=== PATIENT | male | born 1990 | race Caucasian/White ===

== ENCOUNTER 2016-11-30 10:18 | Emergency (ER) | payer OTHER ==
[2016-11-30] MEDS ORDERED: Ibuprofen 600 MG Tab PO ONE (10:52)
--- NOTE | 2016-11-30 10:58 | EDM.PDOC ---
[id number] Complaint: RT ARM FX Time Seen by Provider: 11/30/16 10:21 Source of Information: Reports: Patient, Other (coworker) History Limitations: Reports: No Limitations - History of Present Illness INITIAL COMMENTS - FREE TEXT/NARRATIVE: 26 y.o.w.m. came to the ed with his coworker after he injured his r forearm with a slash hammer. Now, swelling, deformity, pain, unable to use his r arm at work. No other acute medical issues at this time. Onset: Today Onset Date: 11/30/16 Onset Time: 10:00 Duration: Minutes: Location: Reports: Upper Extremity, Right Quality: Reports: Ache, Burning, Dull, Pressure Severity: Moderate Improves with: Reports: Cold Therapy, Immobilization Worsens with: Reports: Movement Context: Reports: Trauma Associated Symptoms: Reports: No Other Symptoms R wrist Pain Score (Numeric/FACES): 4 - Related Data Allergies Allergy/AdvReac Type Severity Reaction Status Date / Time No Known Allergies Allergy Verified 11/30/16 10:35 Home Meds: Home Meds Ibuprofen [Motrin] 600 mg PO TID PRN #30 tab 11/30/16 [Rx] Past Medical History Respiratory History: Reports: Pneumonia, Recurrent Other Musculoskeletal History: R wrist fx. Neurological History: Reports: Concussion Endocrine/Metabolic History: Reports: Obesity/BMI 30+ - Infectious Disease History Infectious Disease History: Reports: Chicken Pox - Past Surgical History HEENT Surgical History: Reports: Oral Surgery Social & Family History - Family History Family Medical History: Noncontributory - Tobacco Use Smoking Status *Q: Current Some Day Smoker Years of Tobacco use: 2 Packs/Tins Daily: 0.1 - Caffeine Use Caffeine Use: Reports: Coffee, Soda, Tea - Recreational Drug Use Recreational Drug Use: No Review of Systems - Review of Systems Review Of Systems: See Below Constitutional: Reports: No Symptoms Eyes: Reports: No Symptoms Ears: Reports: No Symptoms Nose: Reports: No Symptoms Mouth/Throat: Reports: No Symptoms Respiratory: Reports: No Symptoms Cardiovascular: Reports: No Symptoms GI/Abdominal: Reports: No Symptoms Genitourinary: Reports: No Symptoms Musculoskeletal: Reports: Joint Swelling (r wrist/forearm) Skin: Reports: No Symptoms Neurological: Reports: No Symptoms Psychiatric: Reports: No Symptoms ED EXAM, GENERAL - Physical Exam Exam: See Below Exam Limited By: No Limitations General Appearance: Alert, WD/WN, Mild Distress Eye Exam: Bilateral Eye: Normal Inspection Ears: Normal External Exam Ear Exam: Bilateral Ear: Auricle Normal Nose: Normal Inspection, Normal Mucosa Throat/Mouth: Normal Inspection, Normal Lips Head: Atraumatic, Normocephalic Neck: Normal Inspection, Supple, Non-Tender, Full Range of Motion Respiratory/Chest: No Respiratory Distress, Lungs Clear, Normal Breath Sounds, No Accessory Muscle Use, Chest Non-Tender Cardiovascular: Normal Peripheral Pulses, Regular Rate, Rhythm, No Edema, No Gallop Peripheral Pulses: 2+: Femoral (L), Femoral (R) GI/Abdominal: Normal Bowel Sounds, Soft, Non-Tender, No Organomegaly, No Distention, No Abnormal Bruit, No Mass (Male) Exam: No Hernia, Deferred Rectal (Males) Exam: Deferred Back Exam: Normal Inspection, Full Range of Motion Extremities: Joint Swelling, Arm Pain (r upper extremity) Neurological: Alert, Oriented, CN II-XII Intact, Normal Cognition, Normal Gait Psychiatric: Normal Affect, Normal Mood Skin Exam: Warm, Dry, Intact, Normal Color, No Rash Lymphatic: No Adenopathy ED TRAUMA EXTREMITY PROCEDURES - Splinting Right Upper Extremity Pre-Procedure NV Status: Normal Post-Procedure NV Status: Normal Splint Material: Plaster Splint Design: Volar (r forearm/wrist) Applied & Form Fitted By: Provider Provider Post-Splint Application NV Check: NV Status Normal, Good Position Complications: No Course - Vital Signs Text/Narrative:: 26 y.o.w.m. came to the ed with his coworker after he injured his r forearm with a slash hammer. Now, swelling, deformity, pain, unable to use his r arm at work. No other acute medical issues at this time. PE: Swelling/tenderness r forearm and wrist, dorasl aspect, neg snuff box sign Imaging: R forearm/wrist NAD, official report is pending. Impression: R forearm and wrist sprain Tx: Ice, Motrin, volar splint application, armsling Reexam: Improved Plan: D/C with instructions Last Recorded V/S: Last Vital Signs Temp 36.4 C 11/30/16 10:21 Pulse 88 11/30/16 11:30 Resp 18 11/30/16 11:30 BP 131/97 H 11/30/16 11:30 Pulse Ox 99 11/30/16 11:30 - Orders/Labs/Meds Orders: Active Orders 24 hr Category Date Time Status Forearm 2V Rt [CR] Stat Exams 11/30/16 10:52 Taken Ice Therapy [OM.PC] Routine Oth 11/30/16 10:52 Ordered Meds: Medications Discontinued Medications Generic Name Dose Route Start Last Admin Trade Name Freq PRN Reason Stop Dose Admin Ibuprofen 600 mg 11/30/16 10:52 11/30/16 11:07 Motrin PO 11/30/16 10:53 600 mg ONETIME ONE Administration Departure - Departure Time of Disposition: 11:30 Disposition: Home, Self-Care 01 Condition: Good Clinical Impression: Sprain of forearm, right Qualifiers: Encounter type: initial encounter Qualified Code(s): S63.501A - Unspecified sprain of right wrist, initial encounter Sprain of wrist, right Qualifiers: Encounter type: initial encounter Qualified Code(s): S63.501A - Unspecified sprain of right wrist, initial encounter - Discharge Information Prescriptions: Ibuprofen [Motrin] 600 mg PO TID PRN #30 tab PRN Reason: Pain Instructions: Wrist Sprain Referrals: PCP,None [Primary Care Provider] - Kal Alfred MD [Physician] - Forms: ED Department Discharge, ED Return to Work/School Form Additional Instructions: Please elevate right arm/wrist. Please apply ice to the affected area for 20- 30 minutes 4-6 times a day. Please take motrin for pain, please f/u with Ortho this Monday- December 05 at 11:00. Please come back to the ED if your symptoms get worse acutely. - My Orders Last 24 Hours: My Active Orders 11/30/16 10:52 Forearm 2V Rt [CR] Stat Ice Therapy [OM.PC] Routine - Assessment/Plan Last 24 Hours: My Active Orders 11/30/16 10:52 Forearm 2V Rt [CR] Stat Ice Therapy [OM.PC] Routine
[2016-11-30 11:37] VITALS: BP 131/97
--- NOTE | 2016-12-06 10:39 | CR ---
INDICATION: Trauma. RIGHT FOREARM: Frontal and lateral views of the right forearm revealed no evidence of an acute fracture, dislocation, or other significant bone or joint abnormality. IMPRESSION: Normal right forearm. MTDD
== END 2016-11-30 11:49 | disposition home or self-care (01) ==
LOC: FB.ED 10:18
DX: S63.501A Unspecified sprain of right wrist, initial encounter (principal); Z87.01 Personal history of pneumonia (recurrent); E66.9 Obesity, unspecified; F17.210 Nicotine dependence, cigarettes, uncomplicated; X50.9XXA Other and unspecified overexertion or strenuous movements or postures, initial encounter
CPT/HCPCS: 29125; 73090; 99000; 99283; A9270